=== PATIENT | male | born 1990 | race Caucasian/White ===

== ENCOUNTER 2016-09-17 12:43 | Emergency (ER) | payer OTHER ==
[2016-09-17 13:08] VITALS: BP 130/88; PULSE 71; RESP 18; TEMP 97.9; O2SAT 98
== END 2016-09-17 13:39 | disposition home or self-care (01) | DRG 556 ==
LOC: ED 12:43
DX: M25.531 Pain in right wrist (principal)
CPT/HCPCS: 73110; 99282